=== PATIENT | male | born 1990 | race Caucasian/White ===

== ENCOUNTER 2017-11-12 22:04 | Emergency (ER) | payer SELFPAY, OTHER | END 2017-11-13 01:19 | disposition left against medical advice (07) | LOC: FTE 22:04 | DX: Z53.21 Procedure and treatment not carried out due to patient leaving prior to being seen by health care provider (principal) ==

== ENCOUNTER 2017-11-13 09:27 | Emergency (ER) | payer OTHER ==
[2017-11-13] MEDS: KETOROLAC 60 MG INJ IM (10:08)
[2017-11-13] MEDS: HYDROCODONE/APAP (5/325) TAB PO (11:51)
== END 2017-11-13 12:23 | disposition home or self-care (01) ==
LOC: FTE 09:27
DX: S62.001A Unspecified fracture of navicular [scaphoid] bone of right wrist, initial encounter for closed fracture (principal); J45.909 Unspecified asthma, uncomplicated; W01.0XXA Fall on same level from slipping, tripping and stumbling without subsequent striking against object, initial encounter; Y92.9 Unspecified place or not applicable
CPT/HCPCS: 29125; 73090-RT; 73110-RT; 73130-RT; 96372; 99284-25

== ENCOUNTER 2018-05-05 10:43 | Emergency (ER) | payer OTHER ==
[2018-05-05] MEDS: predniSONE 20 MG TAB PO (11:40)
[2018-05-05] MEDS: ALBUTEROL 0.083% (NEB) 2.5 MG/3 ML AMP NEB (12:32)
[2018-05-05] MEDS: IPRATROPIUM (NEB) 0.5 MG/2.5 ML AMP NEB (12:32)
== END 2018-05-05 12:36 | disposition home or self-care (01) ==
LOC: FTE 10:43
DX: J45.901 Unspecified asthma with (acute) exacerbation (principal)
CPT/HCPCS: 94664; 99283-25